=== PATIENT | female | born 1950 | race Caucasian/White ===

== ENCOUNTER → 2023-06-04 12:39 | Outpatient (REF) | payer OTHER, SELFPAY | LOC: HWRAD 12:39 | PROVIDERS: ATTENDING PHYSICIAN Nurse Practitioner | DX: M85.80 Other specified disorders of bone density and structure, unspecified site (principal); Z12.31 Encounter for screening mammogram for malignant neoplasm of breast | CPT/HCPCS: 77063; 77067; 77080 ==

== ENCOUNTER → 2023-06-05 06:35 | Outpatient (REF) | payer OTHER, SELFPAY | LOC: HWRAD 06:35 | PROVIDERS: ATTENDING PHYSICIAN Nurse Practitioner | DX: K42.9 Umbilical hernia without obstruction or gangrene (principal) | CPT/HCPCS: 76705 ==